=== PATIENT | female | born 1985 | race Two or more races ===

== ENCOUNTER 2017-06-22 17:00 | Emergency (ER) | payer MEDICAID ==
[~2017-06-22] VITALS: Ht 165.1 cm; Wt 75.0 kg
[2017-06-22] MEDS ORDERED: ALBU6.7H IH (17:30)
[2017-06-22] MEDS ORDERED: HYDROCODONE/ACETAMINOPHEN 5/325MG TABLET PO ONE (21:00)
[2017-06-22 21:40] LABS: BASOPHILS % 0.9 % (0.0-2.0); EOSINOPHILS % 2.3 % (0.0-5.0); HEMATOCRIT. 33.3 % (36.0-48.0); HEMOGLOBIN. 11.1 g/dL (12.0-16.0); LYMPHOCYTES % 33.2 % (20.0-50.0); MEAN CORPUSCULAR HEMOGLOBIN 30.1 pg (28.0-32.0); MEAN CORPUSCULAR VOLUME 90.4 fL (81.0-99.0); MEAN PLATELET VOLUME 9.4 fl (7.4-10.4); MONOCYTES % 9.8 % (2.0-8.0); NEUTROPHILS % 53.8 % (40.0-76.0); PLATELET 213 x1000/uL (130-400); RED BLOOD CELL COUNT 3.68 mill/uL (4.2-5.4); RED CELL DISTRIBUTION WIDTH 12.9 % (11.6-14.6)
[2017-06-22 21:45] LABS: CHLORIDE 106 mEq/L (98-107)
[2017-06-22 21:49] LABS: CARBON DIOXIDE 30 mEq/L (21-32)
[2017-06-22 22:02] LABS: HCG SCREEN NEGATIVE
[2017-06-23 00:09] VITALS: BP 121/75
[2017-06-23 00:31] LABS: CLARITY URINE CLOUDY (CLEAR); COLOR URINE YELLOW (YELLOW); GLUCOSE URINE NEGATIVE (NEGATIVE); KETONES URINE NEGATIVE (NEGATIVE); LEUKOCYTE ESTERASE URINE 2+ (NEGATIVE); NITRITE URINE POSITIVE (NEGATIVE); OCCULT BLOOD URINE NEGATIVE (NEGATIVE); PH URINE 5.5 (4.5-8.0); PROTEIN URINE NEGATIVE (NEGATIVE); SPECIFIC GRAVITY URINE 1.027 (1.005-1.030); UROBILINOGEN URINE 0.2 E.U./dL (0.2-1.0)
== END 2017-06-23 00:12 | disposition home or self-care (01) ==
LOC: ER 18:09
DX: N39.0 Urinary tract infection, site not specified (principal); B37.3 Candidiasis of vulva and vagina; N83.202 Unspecified ovarian cyst, left side; N83.201 Unspecified ovarian cyst, right side; J45.909 Unspecified asthma, uncomplicated
CPT/HCPCS: 36415; 76830; 76856; 80048; 81001; 84703; 85025; 99285; Z7610

== ENCOUNTER 2017-08-12 18:38 | Emergency (ER) | payer MEDICAID ==
[~2017-08-12] VITALS: Ht 172.7 cm; Wt 71.0 kg
[~2017-08-12 18:38] MED LIST: ALBU6.7H IH
[2017-08-12 19:27] VITALS: BP 126/51
== END 2017-08-13 01:33 | disposition home or self-care (01) ==
LOC: ER 18:38
DX: M25.562 Pain in left knee (principal); M25.512 Pain in left shoulder; V49.50XA Passenger injured in collision with unspecified motor vehicles in traffic accident, initial encounter; Y93.89 Activity, other specified; Y92.410 Unspecified street and highway as the place of occurrence of the external cause; F17.210 Nicotine dependence, cigarettes, uncomplicated
CPT/HCPCS: 73030; 73562; 99284